=== PATIENT | female | born 1970 | race Caucasian/White ===

== ENCOUNTER 2018-01-16 14:40 | Emergency (ER) | payer OTHER ==
[~2018-01-16] VITALS: Ht 162.6 cm; Wt 59.0 kg
[~2018-01-16 14:40] MED LIST: ASA81 MG; PLETAL100 MG; PLETAL50 MG; VASOFLEX TABLET1 TAB
== END 2018-01-16 22:59 | disposition home or self-care (01) ==
LOC: ER 14:40
DX: M79.661 Pain in right lower leg (principal); R53.1 Weakness; I73.9 Peripheral vascular disease, unspecified

== ENCOUNTER 2018-05-18 03:22 | Emergency (ER) | payer OTHER ==
[~2018-05-18] VITALS: Ht 162.6 cm; Wt 59.0 kg
== END 2018-05-18 11:38 ==
LOC: ER 03:22
DX: R42 Dizziness and giddiness (principal)

== ENCOUNTER 2019-11-09 15:15 | Emergency (ER) | payer OTHER ==
[~2019-11-09] VITALS: Ht 160 cm; Wt 54.0 kg
== END 2019-11-09 20:01 | disposition home or self-care (01) ==
LOC: ER 15:15
DX: S33.5XXA Sprain of ligaments of lumbar spine, initial encounter (principal); X50.9XXA Other and unspecified overexertion or strenuous movements or postures, initial encounter; Y93.89 Activity, other specified; Y92.89 Other specified places as the place of occurrence of the external cause; Y99.8 Other external cause status

== ENCOUNTER 2019-12-02 00:16 | Emergency (ER) | payer OTHER ==
[~2019-12-02] VITALS: Ht 162.6 cm; Wt 56.7 kg
== END 2019-12-02 02:15 | disposition home or self-care (01) ==
LOC: ER 00:16
DX: M54.5 Low back pain (principal)

== ENCOUNTER 2020-03-07 10:50 | Emergency (ER) | payer OTHER ==
[~2020-03-07] VITALS: Ht 162.6 cm; Wt 54.4 kg
== END 2020-03-07 14:45 | disposition home or self-care (01) ==
LOC: ER 10:50
DX: R42 Dizziness and giddiness (principal); T43.225A Adverse effect of selective serotonin reuptake inhibitors, initial encounter

== ENCOUNTER 2020-10-12 15:29 | Emergency (ER) | payer OTHER ==
[~2020-10-12] VITALS: Ht 165.1 cm; Wt 58.1 kg
== END 2020-10-12 23:53 | disposition home or self-care (01) ==
LOC: ER 15:29
DX: N39.0 Urinary tract infection, site not specified (principal); R10.2 Pelvic and perineal pain; Z03.818 Encounter for observation for suspected exposure to other biological agents ruled out

== ENCOUNTER 2020-11-11 16:49 | Emergency (ER) | payer OTHER ==
[~2020-11-11] VITALS: Ht 165.1 cm; Wt 59.0 kg
[2020-11-11] MEDS ORDERED: DIALYVITE WITH1 EACH (17:18)
[2020-11-11] MEDS ORDERED: DERMACINRX5000 UNI1 (17:18)
== END 2020-11-11 21:32 | disposition home or self-care (01) ==
LOC: ER 16:49
DX: B34.9 Viral infection, unspecified (principal); N39.0 Urinary tract infection, site not specified; Z03.818 Encounter for observation for suspected exposure to other biological agents ruled out

== ENCOUNTER 2022-05-25 18:32 | Emergency (ER) | payer OTHER ==
[~2022-05-25] VITALS: Ht 165.1 cm; Wt 60.3 kg
[~2022-05-25 18:32] MED LIST changes: +DERMACINRX5000 UNI1; +DIALYVITE WITH1 EACH
== END 2022-05-25 22:49 | disposition home or self-care (01) ==
LOC: ER 18:32
DX: R10.31 Right lower quadrant pain (principal)

== ENCOUNTER 2022-10-16 13:50 | Emergency (ER) | payer OTHER ==
[~2022-10-16] VITALS: Ht 162.6 cm; Wt 61.2 kg
[2022-10-16] MEDS ORDERED: XARELTO15 MG PO (18:11)
== END 2022-10-16 18:39 | disposition home or self-care (01) ==
LOC: ER 13:50
DX: I80.9 Phlebitis and thrombophlebitis of unspecified site (principal); Z88.0 Allergy status to penicillin

== ENCOUNTER 2023-01-25 15:02 | Outpatient (CLI) | payer OTHER ==
[~2023-01-25 15:02] MED LIST changes: +ASA81 MG PO; +CAYENNE PO; +OMEGA-31000 MG PO; +XARELTO15 MG PO
== END 2023-01-25 15:04 | disposition home or self-care (01) ==
LOC: SONOGRAMA 15:02
PROVIDERS: ATTEND Pathology Anatomic Pathology & Clinical Pathology
DX: D34 Benign neoplasm of thyroid gland (principal); E04.9 Nontoxic goiter, unspecified; E04.1 Nontoxic single thyroid nodule

== ENCOUNTER 2023-03-29 22:16 | Emergency (ER) | payer OTHER ==
[~2023-03-29] VITALS: Ht 162.6 cm; Wt 49.0 kg
[2023-03-29] MEDS ORDERED: ATIVAN1 M1 PO (22:27)
[2023-03-29] MEDS ORDERED: PLAVIX75 MG (22:27)
[2023-03-30] MEDS ORDERED: CIPRO500 MG PO (06:47)
[2023-03-30] MEDS ORDERED: DOLOGESIC-DF 51 EACH PO (06:49)
== END 2023-03-30 06:59 ==
LOC: ER 22:16
DX: N39.0 Urinary tract infection, site not specified (principal); K59.00 Constipation, unspecified; Z88.0 Allergy status to penicillin

== ENCOUNTER 2023-08-09 19:04 | Emergency (ER) | payer OTHER ==
[~2023-08-09] VITALS: Ht 162.6 cm; Wt 52.2 kg
[~2023-08-09 19:04] MED LIST changes: +ATIVAN1 M1 PO; +CIPRO500 MG PO; +DOLOGESIC-DF 51 EACH PO; +PLAVIX75 MG
[2023-08-09 20:33] LABS: HEMATOCRIT 38.2 % (36.0-45.00); HEMOGLOBIN 12.7 g/dL (12.0-15.00); MEAN CELL VOLUME 90.9 fL (80.00-100.00); MEAN CORPUSCULAR HEMOGLOBIN 30.2 pg (27.00-32.0); MEAN CORPUSCULAR HGB CONC 33.2 g/dl (32.0-36.0); PLATELET COUNT 168 K/uL (150-450); RED CELL DISTRIBUTION WIDTH 12.9 % (11.5-14.5)
[2023-08-09 20:50] LABS: CALCIUM 9.3 mg/dL (8.5-10.1); CREATININE SERUM 0.77 mg/dL (0.55-1.02); GFR 78.12; POTASSIUM 4.04 mEq/L (3.5-5.1)
== END 2023-08-09 22:21 | disposition home or self-care (01) ==
LOC: ER 19:04
PROVIDERS: General Practice
DX: S32.2XXA Fracture of coccyx, initial encounter for closed fracture (principal); W18.30XA Fall on same level, unspecified, initial encounter; Y93.9 Activity, unspecified; Y92.9 Unspecified place or not applicable; Y99.9 Unspecified external cause status